=== PATIENT | male | born 1995 | race Caucasian/White ===

== ENCOUNTER 2019-02-26 13:57 | Emergency (ER) | payer OTHER ==
[~2019-02-26] VITALS: Ht 175.3 cm; Wt 65.8 kg
[2019-02-26 14:26] LABS: URINE BLOOD NEGATIVE (Negative); URINE CLARITY CLEAR; URINE COLOR YELLOW; URINE GLUCOSE-RANDOM NEGATIVE (Negative); URINE KETONES 2+ (Negative); URINE LEUKOCYTES-REFLEX NEGATIVE (Negative); URINE NITRITE-REFLEX NEGATIVE (Negative); URINE PROTEIN 1+ (Negative); URINE SPECIFIC GRAVITY >= 1.030 (1.005-1.030); URINE UROBILINOGEN 0.2 E.U./dl (0.2-1.0)
[2019-02-26 14:27] LABS: ICTOTEST (BILI CONFIRMATORY) Negative (Negative); URINE BILIRUBIN 1+ (Negative)
[2019-02-26 14:33] LABS: ABSOLUTE MONOCYTES 0.6 thou/uL (0.0-1.2); ABSOLUTE NEUTROPHILS 5.5 thou/uL (1.6-8.1); BASOPHILS 0.3 %; EOSINOPHILS 0.5 %; HEMATOCRIT 45.2 % (42.0-52.0); HEMOGLOBIN 15.8 gm/dL (14.0-18.0); LYMPHOCYTES 24.4 %; MCH 29.2 pg (26.0-34.0); MCV 83.4 fL (80.0-100.0); MPV 8.7 fl. (7.2-11.1); NUCLEATED RBCS 0 /100WBC; PLATELET COUNT* 214 thou/uL (150-400); POLYS 67.8 %; RBC 5.41 mil/uL (4.50-6.00); RDW-CV 12.3 % (10.5-14.5); WBC 8.1 thou/uL (4.0-11.0)
[2019-02-26 14:34] LABS: AMP/METHAMP Negative (Negative); BARBITURATES Negative (Negative); BENZODIAZEPINES Negative (Negative); COCAINE Negative (Negative); METHADONE Negative (Negative); OPIATES Negative (Negative); PCP Negative (Negative); THC POSITIVE (Negative)
[2019-02-26 14:40] LABS: CALCIUM 9.1 mg/dL (8.5-10.1); POTASSIUM 3.2 mmol/L (3.5-5.1)
[2019-02-26 14:44] LABS: ALBUMIN 4.8 g/dL (3.4-5.0); TOTAL BILIRUBIN 0.7 mg/dL (<0.1-1.0); TOTAL PROTEIN 7.9 g/dL (6.4-8.2)
[2019-02-26 15:14] VITALS: BP 140/95
== END 2019-02-26 15:15 | disposition home or self-care (01) ==
LOC: M.ERS 13:57
PROVIDERS: Physician Assistant
DX: R10.11 Right upper quadrant pain (principal); F12.10 Cannabis abuse, uncomplicated

== ENCOUNTER 2019-03-09 08:29 | Emergency (ER) | payer OTHER ==
[~2019-03-09] VITALS: Ht 175.3 cm; Wt 62.1 kg
[2019-03-09 09:06] LABS: URINE BILIRUBIN NEGATIVE (Negative); URINE BLOOD NEGATIVE (Negative); URINE CLARITY CLEAR; URINE COLOR YELLOW; URINE GLUCOSE-RANDOM NEGATIVE (Negative); URINE KETONES NEGATIVE (Negative); URINE LEUKOCYTES NEGATIVE (Negative); URINE NITRITE NEGATIVE (Negative); URINE PROTEIN NEGATIVE (Negative); URINE UROBILINOGEN 0.2 E.U./dl (0.2-1.0)
[2019-03-09 09:13] LABS: AMP/METHAMP Negative (Negative); BARBITURATES Negative (Negative); BENZODIAZEPINES Negative (Negative); COCAINE Negative (Negative); METHADONE Negative (Negative); OPIATES Negative (Negative); PCP Negative (Negative); THC POSITIVE (Negative)
[2019-03-09 09:16] LABS: HEMOGLOBIN 14.7 gm/dL (14.0-18.0); MCH 29.4 pg (26.0-34.0); MCHC 34.8 g/dL (28.0-37.0); MCV 84.2 fL (80.0-100.0); MPV 9.3 fl. (7.2-11.1); RBC 4.99 mil/uL (4.50-6.00); RDW-CV 12.5 % (10.5-14.5); WBC 11.2 thou/uL (4.0-11.0)
[2019-03-09 09:24] LABS: CALCIUM 9.1 mg/dL (8.5-10.1); CREATININE 0.9 mg/dL (0.6-1.3); POTASSIUM 3.4 mmol/L (3.5-5.1)
[2019-03-09 09:29] LABS: ALBUMIN 4.8 g/dL (3.4-5.0); TOTAL BILIRUBIN 0.6 mg/dL (<0.1-1.0); TOTAL PROTEIN 7.9 g/dL (6.4-8.2)
[2019-03-09] MEDS ORDERED: BENTYL 20 MG TA20 M1 PO (10:58)
[2019-03-09 11:23] VITALS: BP 154/88
== END 2019-03-09 11:23 | disposition home or self-care (01) ==
LOC: M.ERS 08:29
PROVIDERS: Emergency Medicine Emergency Medical Services
DX: R10.11 Right upper quadrant pain (principal); J02.9 Acute pharyngitis, unspecified

== ENCOUNTER 2019-03-10 15:29 | Emergency (ER) | payer OTHER ==
[~2019-03-10] VITALS: Ht 175.3 cm; Wt 61.2 kg
[~2019-03-10 15:29] MED LIST: BENTYL 20 MG TA20 M1 PO
[2019-03-10 16:26] LABS: AMP/METHAMP Negative (Negative); BARBITURATES Negative (Negative); BENZODIAZEPINES Negative (Negative); COCAINE Negative (Negative); METHADONE Negative (Negative); OPIATES Negative (Negative); PCP Negative (Negative); THC POSITIVE (Negative)
[2019-03-10 16:38] VITALS: BP 154/78
--- NOTE | 2019-03-11 10:58 | EKG ---
[place] [address] ELECTROCARDIOGRAM REPORT Name: SHARONDA GREGORY Room: 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
== END 2019-03-10 16:39 | disposition home or self-care (01) ==
LOC: M.ERS 15:29
PROVIDERS: Personal Emergency Response Attendant
DX: R07.89 Other chest pain (principal); Z87.891 Personal history of nicotine dependence; Z79.899 Other long term (current) drug therapy